=== PATIENT | male | born 1965 | race Caucasian/White ===

== ENCOUNTER → 2024-01-02 | Outpatient (CLI) | payer BC, SELFPAY ==
[2024-01-02 15:17] LABS: Absolute Lymphocyte Count 1.07 X10^3/uL (0.83-4.51); Absolute Neutrophil Count 3.7 X10^3/uL (2.0-7.7); Basophil# 0.07 X10^3/uL; Basophil% 1.2 % (0-1); Eosinophil# 0.13 X10^3/uL; Eosinophils% 2.3 % (0-5); Hematocrit 41.9 % (40-54); Hemoglobin 14.5 g/dL (13.0-16.5); Lymphocyte # 1.07 X10^3/ul (0.83-4.51); Mean Corp Hgb Conc 34.6 g/dL (32-36); Mean Corpuscular Hgb 34.6 pg (27.0-32.0); Mean Platelet Vol. 10.1 fl (6.2-12.0); Monocyte# 0.63 X10^3/uL; Monocyte% 11.2 % (0-10); NRBC Flagged by Analyzer 0 % (0-5); Neutrophil % 65.8 % (47-70); Platelet Count 293 K/mm3 (150-450); RBC Distribution Width SD 44.3 fl (35.1-43.9); Red Blood Count 4.19 M/mm3 (4.6-6.2); White Blood Count 5.6 K/mm3 (4.4-11.0)
[2024-01-02 16:10] LABS: AST(SGOT) 26 U/L (15-37); Alanine Aminotransfer ALT/SGPT 36 U/L (16-61); Albumin, Serum 3.7 g/dL (3.2-5.0); Alkaline Phosphatase 60 U/L (45-117); Globulin 3.4 g/dL (2.2-4.2); Protein, Total 7.1 g/dL (6.4-8.2)
[2024-01-04 12:09] LABS: QNTFERON TB Mitogen Value > 10.00 IU/mL (.); QNTFERON TB Nil Value 0 IU/mL (.); QNTFERON TB1+ Ag Value 0 IU/mL (.); QNTFERON TB2+ Ag Value 0 IU/mL (.); QNTIFERON TB Positive Criteria Negative (Negative)
== END | disposition home or self-care (01) ==
PROVIDERS: Referring Provider Dermatology; Visit Provider Dermatology
DX: L40.0 Psoriasis vulgaris (principal); Z79.899 Other long term (current) drug therapy
CPT/HCPCS: 36415; 80076; 85025; 86480

== ENCOUNTER → 2024-01-04 | Outpatient (CLI) | payer BC, SELFPAY ==
[2024-01-04 13:33] LABS: T4 Free Direct 1.03 ng/dL (0.76-1.46); T4 Total, Thyroxin 9.5 ug/dL (4.5-12.1)
== END | disposition home or self-care (01) ==
LOC: BIMLAB 09:44
PROVIDERS: PCP Internal Medicine; Referring Provider Physician Assistant; Visit Provider Physician Assistant
DX: E06.3 Autoimmune thyroiditis (principal)
CPT/HCPCS: 36415; 84436; 84439; 84443

== ENCOUNTER → 2025-02-28 | Outpatient (CLI) | payer BC, SELFPAY ==
[2025-02-28 19:20] LABS: Cholesterol 291 mg/dL (<=200); Low Density Lipoprotein Calc. 152 mg/dL; Triglycerides 348 mg/dL; Very Low Density Lipoprotein 70 mg/dL (5-40); cholesterol:hdl ratio screen 3.89
== END | disposition home or self-care (01) ==
LOC: MTLAB 15:39
PROVIDERS: PCP Internal Medicine; Referring Provider Internal Medicine; Visit Provider Internal Medicine
DX: Z13.6 Encounter for screening for cardiovascular disorders (principal); E03.9 Hypothyroidism, unspecified
CPT/HCPCS: 36415; 80061; 84443

== ENCOUNTER → 2025-03-04 | Outpatient (CLI) | payer BC, SELFPAY ==
[2025-03-04 17:42] LABS: Hematocrit 40.4 % (40-54); Hemoglobin 14.2 g/dL (13.0-16.5); Immature Granulocytes Count 0.010 X10^3/uL (0.0-0.0); Mean Corp Hgb Conc 35.1 g/dL (32-36); Mean Corpuscular Volume 101.5 fL (80-94); Mean Platelet Vol. 9.7 fl (6.2-12.0); NRBC Flagged by Analyzer 0 % (0-5); Platelet Count 267 K/mm3 (150-450); RBC Distribution Width CV 12.9 % (11.6-14.6); RBC Distribution Width SD 48.6 fl (35.1-43.9); Red Blood Count 3.98 M/mm3 (4.6-6.2); White Blood Count 4.4 K/mm3 (4.4-11.0)
[2025-03-04 18:37] LABS: AST(SGOT) 44 U/L (<=37); Alanine Aminotransfer ALT/SGPT 35 U/L (<=46); Albumin, Serum 4.2 g/dL (3.4-4.8); Alkaline Phosphatase 73 U/L (40-129); Anion Gap 10 (5-15); BUN 14 mg/dL (4-19); BUN/Creat Ratio 14.6 RATIO (10-20); Calcium,Total 8.9 mg/dL (7.6-11.0); Carbon Dioxide 24.0 mmol/L (21.0-32.0); Chloride 106 mmol/L (98-108); Globulin 2.6 g/dL (2.2-4.2); Glucose 107 mg/dL (70-99); Potassium 3.9 mmol/L (3.3-5.1); T3 Total - Triiodothyronine 0.86 ng/mL (0.80-2.00); Vitamin B12 633 pg/mL (180-914); Vitamin D,25 Hydroxy 18.2 ng/mL (30-100)
[2025-03-04 18:58] LABS: FOLATES,SERUM (FOLIC ACID) 21.10 ng/mL (4.60-34.80)
== END | disposition home or self-care (01) ==
LOC: MTLAB 14:57
PROVIDERS: PCP Internal Medicine; Referring Provider Internal Medicine; Visit Provider Internal Medicine
DX: F10.10 Alcohol abuse, uncomplicated (principal); R53.83 Other fatigue; E03.9 Hypothyroidism, unspecified
CPT/HCPCS: 36415; 80053; 82306; 82607; 82746; 84425; 84439; 84480; 85025

== ENCOUNTER → 2025-03-18 | Outpatient (CLI) | payer BC, SELFPAY | END | disposition home or self-care (01) | PROVIDERS: PCP Internal Medicine; Referring Provider Internal Medicine; Visit Provider Internal Medicine | DX: R05.9 Cough, unspecified (principal); J18.9 Pneumonia, unspecified organism | CPT/HCPCS: 87631; 87633 ==

== ENCOUNTER 2025-04-09 07:35 | Day surgery (SDC) | payer BC, SELFPAY ==
[2025-04-09] VITALS (8 sets, daily range): BP systolic 125–149; BP diastolic 73–89; PULSE 68–74; RESP 14–16; TEMP 36.3–36.6; O2SAT 98–99; BMI 28.1
--- OUTSIDE RECORDS SUMMARY | 2025-04-09 07:39 | XMS RPT_ITS | CCD ---
Author Organization [facility] Care Team Providers Care Almond Sorter Name Role Phone Susan, Fern Primary Care Unavailable Pembine, Fern Referring Unavailable Susan, Fern Attending Unavailable Pembine, Fern Referring Unavailable Susan, Fern Attending Unavailable Pembine, Fern Primary Care Unavailable Pembine, Fern Primary Care Unavailable Pembine, Fern Referring Unavailable Pembine, Fern Attending Unavailable Susan, Fern Referring Unavailable Pembine, Fern Attending Unavailable Susan, Fern Primary Care Unavailable Susan, Fern Primary Care Unavailable Pembine, Fern Referring Unavailable Pembine, Fern Attending Unavailable Pembine, Fern Primary Care Unavailable Myles Waterman Attending Unavailable Problems Problem Classification Problem Date Documented Date Episodic/Chronic Alcohol-related disorders (1 source) Alcohol abuse, uncomplicated; Translations: [Alcohol abuse, uncomplicated] Onset: 03-11-2025 Chronic Other screening for suspected conditions (not mental disorders or infectious disease) (1 source) Encounter for screening for cardiovascular disorders; Translations: [Encounter for screening for cardiovascular disorders] Onset: 03-09-2025 Episodic Pneumonia (except that caused by tuberculosis or sexually transmitted disease) (2 sources) Pneumonia, unspecified organism; Translations: [Pneumonia, unspecified organism] Onset: 03-18-2025 Episodic Residual codes; unclassified (1 source) Personal history of other medical treatment; Translations: [Personal history of other medical treatment] Onset: 03-04-2025 Episodic Results Test Name Value Interpretation Reference Range Facility Internal Medicine Office Vis annemarie 03-14-2025 Internal Medicine Office Visit [facility] Internal [facility] [place], [place] [address] OFFICE VISIT Date of Service: 03/18/25 MR#: [id number] Acct: [id number] Name: RAHAT VELARDE Rep #: [id number] : 1965 Provider: Dr. Fern villagomez MD Age/Sex: 59/M Location: [facility] Status: Signed Intake Vital Signs 03/04/25 13:32 03/18/25 09:08 Height 5 ft 8 in 5 ft 8 in Weight: 183 lb BMI 27.8 BP 142/77 H Blood Pressure Location Lt brachial Position Sitting Respiration 18 Pulse 81 Pulse Source Monitor Temp 99.2 F H Temp Source Temporal Pulse Oximetry (%) 98 Oxygen Delivery Method room air Intake Visit Reasons: POSSIBLE PNEUMONIA Chief Complaint: POSSIBLE PNEUMONIA Is patient in pain?: Yes (5 all over ) Allergies No Known Allergies Allergy (Unverified 03/18/25 09:11) Medications ???Medication ???Instructions ???Recorded ???Confirmed ???Type risankizumab-rzaa 150 mg/mL 150 mg subcut Q12W 01/04/24 History subcutaneous pen injector (Skyrizi) levothyroxine 150 mcg tablet 150 mcg PO QDAY #90 tabs 03/04/25 03/18/25 Rx (Euthyrox) vitamin d 2000 PO DAILY 03/18/25 History Nurse's Note: pt reports that ever since starting his levothyroxine he has been achy,feverish and chilling pt reports he is coughing up yellow/green thick sputum pt states he noticed red tinged coloring in his sputum PFSH Medical History Vitamin D deficiency Hypoglycemia Alcohol abuse J Luis thyroiditis Psoriasis Surgical History No pertinent past surgical history Family History Mother Autoimmune disorder Thyroid disorder CVA (cerebral vascular accident) Social History adopted: No household members: none number of children: 3 current occupational status: employed 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 He has concerns about possible pneumonia. He reports that after he was seen a couple of weeks ago, he started feeling ill. He reports he feels it is related to starting the levothyroxine. He reports he is coughing up thick yellow/green/red mucous. He does report it is a little better than it was. He denies any known sick contacts, however, works at [employer] so it around a lot of people. He reports he went to a [facility] walk in clinic 3-4 days ago, but states he left after he was triaged stating he didn't want to wait. He reports at that time, he was told he had a fever. He reports he has been having sweating and chills and feels his body temperature if 'off.' Symptoms include: Fever (=100.4F) or Chills: Yes Cough: Yes Shortness of breath or difficulty breathing: Yes, improving Fatigue: Yes Muscle aches: Yes Headache: Yes New loss of smell or taste: No Sore throat: Yes, resolved Nasal congestion: Yes Rhinorrhea: Yes Nausea: Yes? Vomiting: No Diarrhea: No OTC meds/remedies that the patient has tried: None High risk category assessment: Age Exposures: Sick contacts: None Family or close contacts with confirmed/suspected COVID in the last 14 days: No ROS Const Constitutional: Positive for chills, fever(s), headache(s), weakness and weight change (8 pound weight loss); No body ache, excessive sweating, fatigue, frequent falls, snoring, sleep problems, abnormal sleep pattern or change in appetite Eyes Eyes: No blurry vision, change in vision, eye pain or Light sensitivity ENT ENT: Positive for ear or mastoid pain, sinus pressure, headache(s) and dry mouth; No abnormal hearing, ear discharge, tinnitus, nasal congestion, sinus pain, neck pain or sore throat (resolved) Resp Respiratory: Positive for cough and shortness of breath (improved); No snoring or wheezing Cardio Cardiology: Positive for chest pain at rest Symptoms: Tightness (improving) and lightheadedness; No chest pain with exertion, excessive sweating, shortness of breath, dyspnea on exertion, orthopnea or palpitations Gastro GI: Positive for nausea/dyspepsia; No abdominal pain, change in bowel habits, constipation, cramping, diarrhea or vomiting Genitourinary Male: No burning urination, painful urinat (more content not included)... Normal [facility] [id number] 03-13-2025 ECG01 Ventricular Rate : 1 06 BPM Atrial Rate : 106 BPM P-R Interval : 152 ms QRS Duration : 82 ms Q-T Interval : 326 ms QTC Calculation(Bazett) : 433 ms Calculated P [place] : 61 degrees Calculated R [place] : 38 degrees Calculated T [place] : 18 degrees SINUS TACHYCARDIA CANNOT EXCLUDE INFERIOR MYOCARDIAL INFARCTION , AGE UNDETERMINED ABNORMAL ECG Confirmed by MICKIE LANGFORD MD ([id number]), clinical editor DEREK GRAVES ([id number]) on 03/16/2025 6:23:50 PM NAME : RAHAT VELARDE PID : [id number] : 1965 Gender : Male Race : Unknown ORD : Procedure Date : Mar 13 2025 22:50:21 Edit Date : Mar 16 2025 18:23:52 Diagnosis: SINUS TACHYCARDIA CANNOT EXCLUDE INFERIOR MYOCARDIAL INFARCTION , AGE UNDETERMINED ABNORMAL ECG Confirmed by MICKIE LANGFORD MD ([id number]), clinical editor DEREK GRAVES ([id number]) on 03/16/2025 6:23:50 PM Test Reason : Location : 2 : [facility]NS Overread By : MICKIE LANGFORD MD Edited By : DEREK GRAVES Referred By : , Acquired by : ANL, Normal [facility] Vitamin B1, Thiamineon 03-13 VIT B1 THIAMINE 111.8 nmol/L Normal 66.5-200.0 [facility] Comment on above: Order Comment: Test( s) 901118-Xvl. B1, Whole Bloodwas developed and its performance characteristicsdetermined by [facility]. It has not been cleared or approvedby the Food and Drug Administration. Result Comment: Perf ormed at: - [facility] [id number] Livestock Rancher: Deyvi Quiroz MD, Phone: [phone] Performed By: #### L 501.9520, L500.4100 #### [facility] [address] [place], [address] CBC W/Diff, Automatedon 10-2 Absolute Lymph 1.03 X10 3/uL Normal 0.83-4.51 [facility] Comment on above: Performed By: #### L 503.0106, L100.0100, L501.9187, L500.4050, L3300.8000, L506.1001, L506.0400, L506.0200 #### [facility] [address], [address] Absolute Neut 2.7 X10 3/uL Normal 2.0-7.7 [facility] Comment on above: Performed By: #### L 503.0106, L100.0100, L501.9187, L500.4050, L3300.8000, L506.1001, L506.0400, L506.0200 #### [facility] [address] [place], [address] Basophils/100 WBC (Bld) 1.4 % High 0-1 [facility] Comment on above: Performed By: #### L 503.0106, L100.0100, L501.9187, L500.4050, L3300.8000, L506.1001, L506.0400, L506.0200 #### [facility] [address] [place], [address] Eosinophils/100 WBC (Bld) 3.4 % Normal 0-5 [facility] Comment on above: Performed By: #### L 503.0106, L100.0100, L501.9187, L500.4050, L3300.8000, L506.1001, L506.0400, L506.0200 #### [facility] [address] [place], [address] Erythrocyte distribution width (RBC) [Ratio] 12.9 % Normal 11.6-14.6 [facility] Comment on above: Performed By: #### L 503.0106, L100.0100, L501.9187, L500.4050, L3300.8000, L506.1001, L506.0400, L506.0200 #### [facility] [address] [place], [address] Hematocrit (Bld) [Volume fraction] 40.4 % Normal 40-54 [facility] Comment on above: Performed By: #### L 503.0106, L100.0100, L501.9187, L500.4050, L3300.8000, L506.1001, L506.0400, L506.0200 #### [facility] [address] [place], [address] Hemoglobin (Bld) [Mass/Vol] 14.2 g/dL Normal 13.0-16.5 [facility] Comment on above: Performed By: #### L 503.0106, L100.0100, L501.9187, L500.4050, L3300.8000, L506.1001, L506.0400, L506.0200 #### [facility] [address] [place], [address] IG% 0.200 Normal 0.0-0.9 [facility] Comment on above: Result Comment: IG% - Immature Granulocytes (promyelocytes, myelocytes and metamyelocytes) > 1% indicates that a LEFT SHIFT is Present. Performed By: #### L 503.0106, L100.0100, L501.9187, L500.4050, L3300.8000, L506.1001, L506.0400, L506.0200 #### [facility] [address] [place], [address] Lymphocytes/100 WBC (Bld) 23.2 % Normal 19-41 [facility] Comment on above: Performed By: #### L 503.0106, L100.0100, L501.9187, L500.4050, L3300.8000, L506.1001, L506.0400, L506.0200 #### [facility] [address] [place], [address] MCH (RBC) [Entitic mass] 35.7 pg High 27.0-32.0 [facility] Comment on above: Performed By: #### L 503.0106, L100.0100, L501.9187, L500.4050, L3300.8000, L506.1001, L506.0400, L506.0200 #### [facility] [address] [place], [address] MCHC (RBC) [Mass/Vol] 35.1 g/dL Normal 32-36 [facility] Comment on above: Performed By: #### L 503.0106, L100.0100, L501.9187, L500.4050, L3300.8000, L506.1001, L506.0400, L506.0200 #### [facility] [address] [place], [address] MCV (RBC) [Entitic vol] 101.5 fL High 80-94 [facility] Comment on above: Performed By: #### L 503.0106, L100.0100, L501.9187, L500.4050, L3300.8000, L506.1001, L506.0400, L506.0200 #### [facility] [address] [place], [address] Monocytes/100 WBC (Bld) 10.4 % High 0-10 [facility] Comment on above: Performed By: #### L 503.0106, L100.0100, L501.9187, L500.4050, L3300.8000, L506.1001, L506.0400, L506.0200 #### [facility] [address] [place], [address] Neutrophils/100 WBC (Bld) 61.4 % Normal 47-70 [facility] Comment on above: Performed By: #### L 503.0106, L100.0100, L501.9187, L500.4050, L3300.8000, L506.1001, L506.0400, L506.0200 #### [facility] [address] [place], [address] Nucleated RBC (Bld) [#/Vol] 0 10*3/uL Normal 0-5 [facility] Comment on above: Performed By: #### L 503.0106, L100.0100, L501.9187, L500.4050, L3300.8000, L506.1001, L506.0400, L506.0200 #### [facility] [address] [place], [address] Platelet mean volume (Bld) [Entitic vol] 9.7 fL Normal 6.2-12.0 [facility] Comment on above: Performed By: #### L 503.0106, L100.0100, L501.9187, L500.4050, L3300.8000, L506.1001, L506.0400, L506.0200 #### [facility] [address] [place], [address] Platelets (Bld) [#/Vol] 267 10*3/uL Normal 150-450 [facility] Comment on above: Performed By: #### L 503.0106, L100.0100, L501.9187, L500.4050, L3300.8000, L506.1001, L506.0400, L506.0200 #### [facility] [address] [place], [address] RBC (Bld) [#/Vol] 3.98 10*6/uL Low 4.6-6.2 [facility] Comment on above: Performed By: #### L 503.0106, L100.0100, L501.9187, L500.4050, L3300.8000, L506.1001, L506.0400, L506.0200 #### [facility] [address] [place], [address] RDW SD 48.6 fl High 35.1-43.9 [facility] Comment on above: Performed By: #### L 503.0106, L100.0100, L501.9187, L500.4050, L3300.8000, L506.1001, L506.0400, L506.0200 #### [facility] [address] [place], [address] WBC (Bld) [#/Vol] 4.4 10*3/uL Normal 4.4-11.0 [facility] Comment on above: Performed By: #### L 503.0106, L100.0100, L501.9187, L500.4050, L3300.8000, L506.1001, L506.0400, L506.0200 #### [facility] [address] [place], [address] Comprehensive [facility] 03-04-2025 Albumin [Mass/Vol] 4.2 g/dL Normal 3.4-4.8 [facility] Comment on above: Performed By: #### L 503.0106, L100.0100, L501.9187, L500.4050, L3300.8000, L506.1001, L506.0400, L506.0200 #### [facility] [address] [place], [address] Albumin/Globulin [Mass ratio] 1.6 {ratio} Normal 0.9-2.4 [facility] Comment on above: Performed By: #### L 503.0106, L100.0100, L501.9187, L500.4050, L3300.8000, L506.1001, L506.0400, L506.0200 #### [facility] [address] [place], [address] ALK PHOS 73 U/L Normal 40-129 [facility] Comment on above: Performed By: #### L 503.0106, L100.0100, L501.9187, L500.4050, L3300.8000, L506.1001, L506.0400, L506.0200 #### [facility] [address] [place], [place], [id number] (864) ALT [Catalytic activity/Vol] 35 U/L Normal <=46 [facility] Comment on above: Performed By: #### L 503.0106, L100.0100, L501.9187, L500.4050, L3300.8000, L506.1001, L506.0400, L506.0200 #### [facility] [address] [place], [place], [id number] AST [Catalytic activity/Vol] 44 U/L High <=37 [facility] Comment on above: Performed By: #### L 503.0106, L100.0100, L501.9187, L500.4050, L3300.8000, L506.1001, L506.0400, L506.0200 #### [facility] [address] [place], [place], [address] Bilirubin [Mass/Vol] 0.53 mg/dL Normal 0.00-1.30 [facility] Comment on above: Performed By: #### L 503.0106, L100.0100, L501.9187, L500.4050, L3300.8000, L506.1001, L506.0400, L506.0200 #### [facility] [address] [place], [address] BUN/CRE 14.6 RATIO Normal 10-20 [facility] Comment on above: Performed By: #### L 503.0106, L100.0100, L501.9187, L500.4050, L3300.8000, L506.1001, L506.0400, L506.0200 #### [facility] [address] [place], [address] Calcium [Mass/Vol] 8.9 mg/dL Normal 7.6-11.0 [facility] Comment on above: Performed By: #### L 503.0106, L100.0100, L501.9187, L500.4050, L3300.8000, L506.1001, L506.0400, L506.0200 #### [facility] [address] [place], [address] Chloride [Moles/Vol] 106 mmol/L Normal 98-108 [facility] Comment on above: Performed By: #### L 503.0106, L100.0100, L501.9187, L500.4050, L3300.8000, L506.1001, L506.0400, L506.0200 #### [facility] [address] [place], [address] CO2 [Moles/Vol] 24.0 mmol/L Normal 21.0-32.0 [facility] Comment on above: Performed By: #### L 503.0106, L100.0100, L501.9187, L500.4050, L3300.8000, L506.1001, L506.0400, L506.0200 #### [facility] [address] [place], [address] Creatinine [Mass/Vol] 0.94 mg/dL Normal 0.70-1.20 [facility] Comment on above: Performed By: #### L 503.0106, L100.0100, L501.9187, L500.4050, L3300.8000, L506.1001, L506.0400, L506.0200 #### [facility] [address] [place], [place], [id number] (561) GAP 10 Normal 5-15 [facility] Comment on above: Performed By: #### L 503.0106, L100.0100, L501.9187, L500.4050, L3300.8000, L506.1001, L506.0400, L506.0200 #### [facility] [address] [place], [address] GFR/1.73 sq M.predicted among non-blacks MDRD (S/P/Bld) [Vol rate/Area] 93 mL/min/{1.73_m2} Normal >60 [facility] Comment on above: Result Comment: mL/m in/1.73m2 CKD-EPI Creatinine Equation (2020) Performed By: #### L 503.0106, L100.0100, L501.9187, L500.4050, L3300.8000, L506.1001, L506.0400, L506.0200 #### [facility] [address] [place], [place], [id number] (121) Globulin (S) [Mass/Vol] 2.6 g/dL Normal 2.2-4.2 [facility] Comment on above: Performed By: #### L 503.0106, L100.0100, L501.9187, L500.4050, L3300.8000, L506.1001, L506.0400, L506.0200 #### [facility] [address] [place], [place], [phone] Glucose [Mass/Vol] 107 mg/dL High 70-99 [facility] Comment on above: Performed By: #### L 503.0106, L100.0100, L501.9187, L500.4050, L3300.8000, L506.1001, L506.0400, L506.0200 #### [facility] [address] [place], [address] Potassium [Moles/Vol] 3.9 mmol/L Normal 3.3-5.1 [facility] Comment on above: Performed By: #### L 503.0106, L100.0100, L501.9187, L500.4050, L3300.8000, L506.1001, L506.0400, L506.0200 #### [facility] [address] [place], [address] Sodium [Moles/Vol] 140 mmol/L Normal 133-145 [facility] Comment on above: Performed By: #### L 503.0106, L100.0100, L501.9187, L500.4050, L3300.8000, L506.1001, L506.0400, L506.0200 #### [facility] [address] [place], [address] T PROT 6.8 g/dL Normal 5.9-8.4 [facility] Comment on above: Performed By: #### L 503.0106, L100.0100, L501.9187, L500.4050, L3300.8000, L506.1001, L506.0400, L506.0200 #### [facility] [address] [place], [address] Urea nitrogen [Mass/Vol] 14 mg/dL Normal 4-19 [facility] Comment on above: Performed By: #### L 503.0106, L100.0100, L501.9187, L500.4050, L3300.8000, L506.1001, L506.0400, L506.0200 #### [facility] [address] [place], [address] Folates,Serum (Folic Acid)on 03-04-2025 FOLATES,SERUM 21.10 ng/mL Normal 4.60-34.80 [facility] Comment on above: Order Comment: N Result Comment: Hemo lysis, Results will be affected, Requires Recollection. Performed By: #### L 501.9520, L500.4100 #### [facility] [address] [place], [address] Internal Medicine Office Vis iton 03-04-2025 Internal Medicine Office Visit [facility] Internal Medicine [address] [place] [address] [place] [address] OFFICE VISIT Date of Service: 03/04/25 MR#: [id number] Acct: [id number] Name: RAHAT VELARDE Rep #: [id number] : 1965 Provider: Dr. 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 Required: No Accompanied by: Self Is patient in pain?: No Allergies No Known Allergies Allergy (Unverified 03/04/25 13:19) Medications ???Medication ???Instructions ???Recorded ???Confirmed ???Type risankizumab-rzaa 150 mg/mL 150 mg subcut Q12W 01/04/24 History subcutaneous pen injector (Skyrizi) levothyroxine 150 mcg tablet 150 mcg PO QDAY #90 tabs 03/04/25 03/04/25 Rx (Euthyrox) Nurse's Note: patient has not taken synthroid in the past year SOB fatigue chest tightness head feels cloudy and diarrhea and ankle inflammation eye lids and below eyes swollen PFSH Medical History Vitamin D deficiency Hypoglycemia Alcohol abuse J Luis thyroiditis Psoriasis Surgical History No pertinent past surgical history Family History Mother Autoimmune disorder Thyroid disorder CVA (cerebral vascular accident) Social History (Updated 03/04/25 @ 13:[address] 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 1. Little interest or pleasure in doing things: several days 2. Feeling down, depressed, or hopeless: not at all 3. Trouble falling or staying asleep, or sleeping too much: several days 4. Feeling tired or having little energy: nearly every day 5. Poor appetite or overeating: nearly every day 6. Feeling bad about yourself - or that you are a failure or have let yourself and your family down: not at all 7. Trouble concentrating on things, such as reading the newspaper or watching television: more than half the days 8. Moving or speaking so slowly that other people could have noticed? - Or the opposite - being so fidgety or restless that you have been moving around a lot more than usual: more than half the days 9. Thoughts that you would be better off or of hurting yourself in some way: not at all Total score: 12 If you checked off any problems, how difficult have these problems made it for you to do your work, take care of things at home, or get along with other people?: somewhat difficult Source: Developed by Drs. Hal Pozo, Vanda Rodriguez, Bassam Blake and colleagues, with an educational cj from [employer]. NHUNG-7 BMS NHUNG-7 Feeling nervous, anxious, or on edge: 0 = Not at all Not being able to stop or control worryin = Not at all Worrying too much about different things: 0 = Not at all Trouble relaxin = Not at all Being so restless that it is hard to sit still: 0 = Not at all Becoming easily annoyed or irritable: 0 = Not at all Feeling afraid as if something awful might happen: 0 = Not at all Total NHUNG-7 score (0-4 normal; 5-9 mild; 10-14 moderate; 15-21 severe): 0 Source: Developed by Drs. Hal Pozo, Vanda Rodriguez, Bassam Blake and colleagues, with an educational cj from [employer]. HPI HPI Chief Complaint: yearly Details: RAHAT VELARDE, is a 59 M who presents to the office today for a follow up. He is due for some routine blood work and screening. He previously declined any immunizations and doesn't want a flu shot. He doesn't smoke and does need refills. He reports he doesn't really eat healthy. He reports he isn't very active stating he has no energy. The patient has been on thyroid medications for nearly 5 years, however, has been very inconsistent with taking the medication. He reports that he hasn't taken anything for his thyroid for 8-9 (more content not included)... Normal [facility] L501.9187on 03-04-2025 T3 Total 0.86 ng/mL Normal 0.80-2.00 [facility] Comment on above: Performed By: #### L 503.0106, L100.0100, L501.9187, L500.4050, L3300.8000, L506.1001, L506.0400, L506.0200 #### [facility] [address] [place], [place], [address] T4 Free Directon 03-04-2025 T4 FREE DIRECT 0.40 ng/dL Low 0.76-1.46 [facility] Comment on above: Performed By: #### L 503.0106, L100.0100, L501.9187, L500.4050, L3300.8000, L506.1001, L506.0400, L506.0200 #### [facility] [address] [place], [address] Vitamin B12on 03-04-2025 Cobalamin (Vitamin B12) [Mass/Vol] 633 pg/mL Normal 180-914 [facility] Comment on above: Performed By: #### L 503.0106, L100.0100, L501.9187, L500.4050, L3300.8000, L506.1001, L506.0400, L506.0200 #### [facility] [address] [place], [address] Vitamin D,25 Hydroxyon 03-04 Vitamin D 25-OH 18.2 ng/mL Low 30-100 [facility] Comment on above: Result Comment: Emily min D Status Deficiency: <20 ng/mL (50nmol/L) Insufficiency: 20-30 ng/mL (50-75 nmol/L) Sufficiency: 30-100 ng/mL (75-250 nmol/L) Toxicity: >100 ng/mL (>250 nmol/L) Performed By: #### L 503.0106, L100.0100, L501.9187, L500.4050, L3300.8000, L506.1001, L506.0400, L506.0200 #### [facility] [address] [place], [address] Lipid Profileon 02-28-2025 CHOL:HDL 3.89 Normal [facility] Comment on above: Performed By: #### L 501.9520, L500.4100 #### [facility] [address] [place], [address] Cholesterol [Mass/Vol] 291 mg/dL High <=200 [facility] Comment on above: Result Comment: Chol esterol level, Desirable <200 mg/dL Borderline high cholesterol 200-239 mg/dL High cholesterol >=240 mg/dL Recommendations of the NCEP Adult Treatment Panel for the following risk-cutoff thresholds for the [place] population. Performed By: #### L 501.9520, L500.4100 #### [facility] [address] [place], [address] Cholesterol in HDL [Mass/Vol] 75 mg/dL Normal [facility] Comment on above: Result Comment: Jazmin onal Cholesterol Education Program (NCEP) guidelines: <40 mg/dL: Low HDL-cholesterol (major risk factor for CHD) >= 60 mg/dL: High HDL-cholesterol (negative risk factor for CHD) HDL-cholesterol is affected by a number of factors, e.g. smoking, exercise, hormones, sex and age. Performed By: #### L 501.9520, L500.4100 #### [facility] [address] [place], [address] Cholesterol in LDL [Mass/Vol] 152 mg/dL Normal [facility] Comment on above: Result Comment: Bord byzwcp=807-627 mg/dL Higher Rolp=615 mg/dL or greater Peoples Equation 2020 for LDL-C Performed By: #### L 501.9520, L500.4100 #### [facility] [address] [place], [address] Cholesterol in VLDL [Mass/Vol] 70 mg/dL High 5-40 [facility] Comment on above: Performed By: #### L 501.9520, L500.4100 #### [facility] [address] [place], [address] Triglyceride [Mass/Vol] 348 mg/dL High [facility] Comment on above: Result Comment: The drugs N-Acetylcysteine and Metamizole may falsely depress this assay. Normal range: <150 mg/dL Borderline High: 150-199 mg/dL High: 200-499 mg/dL Very High: >500 mg/dL Performed By: #### L 501.9520, L500.4100 #### [facility] [address] [place], [address] Thyroid Stim Hormone (TSH)on 02-28-2025 TSH 82.100 uIU/mL High 0.300-4.200 [facility] Comment on above: Performed By: #### L 501.9520, L500.4100 #### [facility] [place], [address] Encounters Encounter Date Encounter Type Care Provider Facility Start: 04-09-2025 ambulatory Fern Pembine Facility :[facility] Start: 03-18-2025 ambulatory Fern Pembine Facility :[facility] Start: 03-18-2025 End: 03-18-2025 ambulatory Fern [place] [place] Start: 03-13-2025 End: 03-13-2025 Emergency department patient visit Facility:[facility] Start: 03-04-2025 End: 03-04-2025 ambulatory Fern Susan [place] Start: 03-04-2025 End: 03-04-2025 ambulatory Fern Susan Facility:[facility] Start: 02-28-2025 End: 02-28-2025 ambulatory Fern Pembine Facility:[facility] Payers Date Payer Category Payer Self-pay 2025 Unknown [id number] Unknown [id number] .. [id number] Unknown [id number] . [id number] Unknown [id number] .. [id number] Unknown [id number] .. [id number] Unknown [id number] ..8 [id number] Unknown [id number] [id number] [id number] Summary Purpose Family History No Family History Records FoundNo Family History Records Found Advance Directives No Advanced Directives Records FoundNo Advanced Directives Records Found Additional Source Comments (unrecognized sect ion and content) No Status Records FoundNo Status Records Found INFORMATION SOURCE (unrecogn ized section and content) DATE CREATED AUTHOR 03/17/2025 [facility] DATE CREATED AUTHOR AUTHOR'S LISA HATFIELD 03/21/2025 [facility] FOR RECORDS PERTAINING TO PATIENTS WHO ARE OR HAVE BEEN ENROLLED IN A CHEMICAL DEPENDENCY/SUBSTANCEABUSE PROGRAM, SOME INFORMATION MAY BE OMITTED. This clinical summary was aggregated from multiple sources. Caution should be exercised in using it in the provision of clinical care. This summary normalizes information from multiple sources, and as a consequence, information in this document may materially change the coding, format and clinical context of patient data. In addition, data may be omitted in some cases. CLINICAL DECISIONS SHOULD BE BASED ON THE PRIMARY CLINICAL RECORDS. [employer] [facility]. provides no warranty or guarantee of the accuracy or completeness of information in this document.
[2025-04-09] MEDS: Lactated Ringers 1,000 ML 15 ML IV (08:08)
--- NOTE | 2025-04-09 08:39 | PCM.PRE.AN2 ---
ASA Classification* ASA Classification ASA Classification: 2 Assessment & Plan Anesthesia* Anesthesia Assessment Anesthesia Assessment: Discussed sedation and/or anesthesia options, risks, benefits, and alternatives with patient/parents/legal guardian/POA. Questions invited. The patient/parents/legal guardian/POA seems to understand and agrees to proceed with anesthesia plan. Reviewed the physical assessment, medical history, allergy history and patient home medications list prior to surgery/procedure/anesthetic and documented any changes. Performed airway and anesthesia risk assessments. Anesthesia Type Anesthesia Type: MAC History Source History Obtained from:: Patient and Chart Anesthesia Focused Assessment* Temperature: 97.9 F Pulse Rate: 74 Blood Pressure: 149/89 Respiratory Rate: 14 Pulse Ox: 98 Oxygen Delivery Method: Room Air Airway Assessment Mouth opens: 2 cm Mallampati Score: I Teeth Condition: Intact Neck Range of motion (ROM): Limited ROM (Slight Decrease) Labs Anesthesia Preop lab: CBC WBC, (4.4-11.0) 4.4 K/mm3 03/04/25, 15:01 RBC, (4.6-6.2) 3.98 M/mm3 L 03/04/25, 15:01 Hgb, (13.0-16.5) 14.2 g/dL 03/04/25, 15:01 Hct, (40-54) 40.4 % 03/04/25, 15:01 Plt Count, (150-450) 267 K/mm3 03/04/25, 15:01 CHEMISTRY Potassium, (3.3-5.1) 3.9 mmol/L 03/04/25, 15:01 Sodium, (133-145) 140 mmol/L 03/04/25, 15:01 BUN, (4-19) 14 mg/dL 03/04/25, 15:01 Creatinine, (0.70-1.20) 0.94 mg/dL 03/04/25, 15:01 Glucose, (70-99) 107 mg/dL H 03/04/25, 15:01 TSH, (0.300-4.200) 82.100 uIU/mL H 02/28/25, 15:42 COAG Pre-Assessment Diagnosis/Proposed Procedure Planned Operative Procedure(s): CSCOPE Anesthesia History 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 When Was Last Pacemaker Check QUESTION #4 FULL TEXT: You/Your Family Experience fever (hyperthermia) with Anesthesia Last Oral Intake Last Oral intake: Last Oral Intake NPO since 21:00 04/09/25 07:57 Meds taken in AM with sips of No 04/09/25 07:57 water? Meds patient instructed to take am of surgery Any additional information?: Yes Meds taken in AM with sips of water?: Yes Meds patient instructed to take am of surgery: Levothyroxine PONV PONV - national sales consultant: PONV - national sales consultant Female No 04/03/25 11:06 HX of Motion Sickness No 04/03/25 11:06 HX of N/V After Surgery No 04/03/25 11:06 Non-Smoker Yes 04/03/25 11:06 Duration of Surgery greater No 04/03/25 11:06 than 60 minutes Number of Risk Factors 1 04/03/25 11:06 PONV Score Low Risk 04/03/25 11:06 Height & Weight Height & Weight: Anesthesia: Height & Weight Height 5 ft 8 in 04/09/25 07:57 Weight: 84 kg 04/09/25 07:57 Body Mass Index (BMI) 28.1 04/09/25 07:57 Respiratory Assessment Respiratory Assessment - national sales consultant: Respiratory Tract Infection Hx - national sales consultant Hx Respiratory Tract Infection Yes: URI 04/03/25 11:06 Any additional information?: Yes Hx Respiratory Tract Infection: Yes History of Anesthesia Respiratory Infection details: Patient had pneumonia within the past couple weeks. Treated with 1 week course of antibiotics. STOP Sleep Apnea STOP Sleep Apnea - national sales consultant: STOP Sleep Apnea - national sales consultant Hx Hypertension No 04/03/25 11:06 Hx Sleep Apnea No 04/03/25 11:06 CPAP BIPAP Do you snore loudly (louder No 04/03/25 11:06 than talking or can be heard Do you often feel tired/ No 04/03/25 11:06 fatigued/ sleepy during daytime? Has anyone observed you stop No 04/03/25 11:06 breathing during sleep? STOP Results Negative 04/03/25 11:06 QUESTION #5 FULL TEXT : Do you snore loudly (louder than talking or can be heard through closed doors)? 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 Specify any problems Hx of Preganancy in last 3 N/A 04/03/25 11:06 Months Nurse Filling Out Transfusion NBUCHER 04/03/25 11:06 & Questions: Date: 04/03/25 04/03/25 11:06 Time: 11:07 04/03/25 11:06 Patient unable to answer at this time (ie. confused, unrespo /Reproduction History /Reproductive History - national sales consultant: /Reproductive Hx- national sales consultant Hx Now No 04/03/25 11:06 Gestational Age (in weeks): EDC: Hx Hx Para Hx Section SAB No 04/03/25 11:06 Does the father of the baby or his family experience fever w Father of the baby Malignant Hypertension history comment Active Medications Active Medications: Current Medications Generic Name Dose Route Start Last Admin Trade Name Freq PRN Reason Stop Dose Admin Lactated Ringer's 1,000 mls @ 15 mls/hr 04/09/25 07:45 04/09/25 08:08 IV 15 mls/hr .Q48H RENÉE Administration PFSH Medical History Hyperthyroidism Thyroid disease Non-smoker Vitamin D deficiency Hypoglycemia Alcohol abuse J Luis thyroiditis Psoriasis Home Medications Medication Instructions Recorded Last Taken Type risankizumab-rzaa 150 mg/mL 150 mg subcut Q12W 01/04/24 Unknown History subcutaneous pen injector (Skyrizi) levothyroxine 150 mcg tablet 150 mcg PO QDAY #90 tabs 03/04/25 04/09/25 05:45 Rx (Euthyrox) cholecalciferol (vitamin D3) 50 50 mcg PO DAILY 04/03/25 Unknown History mcg (2,000 unit) capsule (Vitamin D3) Allergy/AdvReac Type Severity Reaction Status Date / Time No Known Allergies Allergy Verified 04/09/25 07:56 Family History Mother Autoimmune disorder Thyroid disorder CVA (cerebral vascular accident) Surgical History History of colonoscopy No pertinent past surgical history Social History adopted: No household members: none number of children: 3 current occupational status: employed 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
--- NOTE | 2025-04-09 08:45 | COLBX_PTH ---
PATIENT: RAHAT VELARDE LOC: EN U#:[id number] AGE/SX: 59/M ROOM: RE04/09/[address]: Dr. Myles Waterman MD : 1965 BED: DIS: 04/09/2025 SPEC #: [id number] RECD: 04/09/25 10:22 STATUS: BROOKLYNN REKarlie #: [id number] PRISCILLA: 04/09/25 08:[address]: Myles Waterman DEPT: SURGICAL PATHOLOGY RECD BY: Bowen Walsh ENTERED: 04/09/25 10:43 SP TYPE: COLON BX OTHR DR: Dr. Fren Davis MD Tissues: A - Sigmoid colon biopsy Procedures: Surgery Specimen Level IV HEADER OPERATION: Colonoscopy with biopsy PRE-OP DIAGNOSIS: Screening colonoscopy TISSUE SUBMITTED: A- Sigmoid polyp biopsy MICROSCOPIC DIAGNOSIS A. Colon, sigmoid, polyp, biopsy: - Hyperplastic polyp, small mucosal lymphoid aggregate. MICROSCOPIC DESCRIPTION Slides are reviewed. GROSS DESCRIPTION A. Received in fixative is one container labeled with the patient's name and designated "Sigmoid polyp biopsy." The specimen consists of one irregular fragment of campuzano tissue that measures 0.4 cm. The specimen is totally submitted in one cassette. MA 04/09/2025 CPT:70867
--- NOTE | 2025-04-09 09:16 | PCM.HP.STD ---
[facility] - General General Date of Admission: 04/09/25 Date of Service: 04/09/25 Chief Complaint: Colonoscopy HPI Narrative RAHAT VELARDE, is a 59 M who presents today for screening colonoscopy. His last colonoscopy was about 10 or 11 years ago. He does have a history of polyps. He denies any recent GI issues or problems [facility] Medical History (Updated 04/09/25 @ 09:[address] Myles Waterman MD) Screening for colon cancer Hyperthyroidism Thyroid disease Non-smoker Vitamin D deficiency Hypoglycemia Alcohol abuse J Luis thyroiditis Psoriasis Home Medications Medication Instructions Recorded Last Taken Type risankizumab-rzaa 150 mg/mL 150 mg subcut Q12W 01/04/24 Unknown History subcutaneous pen injector (Skyrizi) levothyroxine 150 mcg tablet 150 mcg PO QDAY #90 tabs 03/04/25 04/09/25 05:45 Rx (Euthyrox) cholecalciferol (vitamin D3) 50 50 mcg PO DAILY 04/03/25 Unknown History mcg (2,000 unit) capsule (Vitamin D3) Allergy/AdvReac Type Severity Reaction Status Date / Time No Known Allergies Allergy Verified 04/09/25 07:56 Family History Mother Autoimmune disorder Thyroid disorder CVA (cerebral vascular accident) Surgical History History of colonoscopy No pertinent past surgical history Social History adopted: No household members: none number of children: 3 current occupational status: employed 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 pets and animals: No sexually active: No Smoking Status: Never smoker alcohol intake: current alcohol intake frequency: a few times a week substance use type: does not use well-balanced diet: daily or most days caffeine: Yes (2) Type: coffee frequency: daily seatbelt use: always do you feel safe at home: Yes Vital Signs Vital Signs Vital Signs: 04/09/25 07:57 04/09/25 07:57 04/09/25 08:01 Temperature 97.9 F Temperature Source Temporal Pulse Rate 74 Respiratory Rate 14 Respiratory Pattern Normal Blood Pressure 149/89 H Blood Pressure Mean 109 Blood Pressure Source Monitor Blood Pressure Position Sitting Blood Pressure Location Left Arm Baseline BP 149/89 Pulse Ox 98 Oxygen Delivery Method Room Air 04/09/25 08:46 Temperature 97.9 F Temperature Source Pulse Rate 74 Respiratory Rate 14 Respiratory Pattern Blood Pressure 149/89 H Blood Pressure Mean Blood Pressure Source Blood Pressure Position Blood Pressure Location Baseline BP Pulse Ox 98 Oxygen Delivery Method Room Air Weight Weight: 185 lb 3.013 oz Body Mass Index (BMI) 28.1 Physical Exam Const alert, oriented x3 and no apparent distress Assessment & Plan Assessment/Plan (1) Screening for colon cancer: PLAN: Plan Patient is a 59-year-old male in need of a screening colonoscopy. We discussed the details of the planned procedure including risks benefits and alternatives. He wishes to proceed. This is to begin momentarily
--- NOTE | 2025-04-09 09:59 | OP.PROVAT_ITS ---
04/09/2025 Fern Davis Md Re : Colonoscopy procedure for Carrington Moreno Dear Susan This procedure was performed on Wednesday, April 09, 2025. My impressions and recommendations are as follows: Impressions : - Preparation of the colon was fair. - Internal hemorrhoids. - One 3 mm polyp in the sigmoid colon, removed with a cold biopsy forceps. Resected and retrieved. - The examination was otherwise normal on direct and retroflexion views. Recommendations : - Discharge patient to home (ambulatory). - High fiber diet. - Await pathology results. - Repeat colonoscopy in 5 years for surveillance. - Return to my office PRN. - Continue present medications. My findings are described in the full procedure note, which is enclosed. If I can be of further assistance, please feel free to contact me at . Sincerely, Myles Waterman MD 04/09/2025 9:58:53 AM This report has been signed electronically.
--- NOTE | 2025-04-09 09:59 | OP.COLON_ITS ---
Patient Name: Carrington Moreno Procedure Date: 04/09/2025 9:12 AM Date of : 1965 Age: 59 Procedure: Colonoscopy Indications: High risk colon cancer surveillance: Personal history of colonic polyps Providers: Myles Waterman MD Referring MD: Fern Davis Md Medicines: Monitored Anesthesia Care Patient Profile: Refer to note in patient chart for documentation of history and physical. Last Colonoscopy: more than 10 years ago. Complications: No immediate complications. Estimated blood loss: Minimal. Procedure: Pre-Anesthesia Assessment: - Prior to the procedure, a History and Physical was performed, and patient medications and allergies were reviewed. The patient's tolerance of previous anesthesia was also reviewed. The risks and benefits of the procedure and the sedation options and risks were discussed with the patient. All questions were answered, and informed consent was obtained. Prior Anticoagulants: The patient has taken no anticoagulant or antiplatelet agents. ASA Grade Assessment: II - A patient with mild systemic disease. After reviewing the risks and benefits, the patient was deemed in satisfactory condition to undergo the procedure. After I obtained informed consent, the scope was passed under direct vision. Throughout the procedure, the patient's blood pressure, pulse, and oxygen saturations were monitored continuously. The adult colonoscope was introduced through the anus and advanced to the cecum, identified by appendiceal orifice and ileocecal valve. The ileocecal valve, appendiceal orifice, and rectum were photographed. The entire colon was examined. The colonoscopy was performed without difficulty. The patient tolerated the procedure well. The quality of the bowel preparation was fair. Moderate Sedation: See the other procedure note for documentation of moderate sedation with intraservice time. Scope In: 9:28:42 AM Scope Withdrawal Time 0 hours 9 minutes 58 seconds Scope Out: 9:49:07 AM Total Procedure Duration Time 0 hours 20 minutes 25 seconds Findings: The perianal and digital rectal examinations were normal. Internal hemorrhoids were found during retroflexion. The hemorrhoids were moderate. A 3 mm polyp was found in the sigmoid colon. The polyp was semi-pedunculated. The polyp was removed with a cold biopsy forceps. Resection and retrieval were complete. Verification of patient identification for the specimen was done by the nurse using the patient's name, date and medical record number. Estimated blood loss was minimal. The exam was otherwise without abnormality on direct and retroflexion views. Impression: - Preparation of the colon was fair. - Internal hemorrhoids. - One 3 mm polyp in the sigmoid colon, removed with a cold biopsy forceps. Resected and retrieved. - The examination was otherwise normal on direct and retroflexion views. Recommendation: - Discharge patient to home (ambulatory). - High fiber diet. - Await pathology results. - Repeat colonoscopy in 5 years for surveillance. - Return to my office PRN. - Continue present medications. Procedure Code(s): --- Professional --- 76157, Colonoscopy, flexible; with biopsy, single or multiple Diagnosis Code(s): --- Professional --- D12.5, Benign neoplasm of sigmoid colon Z86.010, Personal history of colonic polyps K64.8, Other hemorrhoids CPT copyright 2021 [employer]. All rights reserved. The codes documented in this report are preliminary and upon math and science instructor review may be revised to meet current compliance requirements. Myles Waterman MD 04/09/2025 9:58:53 AM This report has been signed electronically. Number of Addenda: 0 Note Initiated On: 04/09/2025 9:12 AM
--- NOTE | 2025-04-09 10:00 | PCM.POST.ANE ---
Anesthesia: Postop Eval I Current Vital Signs Temperature: 97.4 F Pulse Rate: 68 Blood Pressure: 125/73 Respiratory Rate: 16 Pulse Ox: 99 Oxygen Delivery Method: Room Air Assessment Airway patent: Yes Spontaneous unlabored respirations: Yes Mental status: Awake and Calm nausea: No Vomiting: No Anesthesia Complication: No Fluid Hydration Crystalloid volume administer (ml): 600 Total IV fluid infused: 600 Progress Note Anesthesia document: Postop Eval 1 completed: Yes
--- NOTE | 2025-04-09 10:44 | PCM.POSTANE2 ---
Anesthesia Postop Eval I Sum Postop Eval Completion status Anesthesia document: Postop Eval 1 completed: Yes Anesthesia Postop Eval I Summary Anesthesia Postop Eval I Summary: Anesthesia Postop Eval I: Assessment Summary Airway patent Yes 04/09/25 10:01 [email or web address] Spontaneous unlabored Yes 04/09/25 10:01 [email or web address] respirations Mental status Awake,Calm 04/09/25 10:01 [email or web address] nausea No 04/09/25 10:01 [email or web address] Vomiting No 04/09/25 10:01 [email or web address] Anesthesia Postop Eval I: Fluid Summary Crystalloid volume administer 600 04/09/25 10:01 [email or web address] (ml) Colloids volume administered ( ml) Blood Product volume administered (ml) Total IV fluid infused 600 04/09/25 10:01 [email or web address] Anesthesia Postop Eval I: Summary Notes Anesthesia Complication No 04/09/25 10:01 [email or web address] Anesthesia Complication Comment: Post-operative progress note Anesthesia: Postop Eval II Evaluation Mental status: Awake and Calm Pain Level: 0 nausea: No Vomiting: No Complications Anesthesia Complication: No
== END 2025-04-09 10:43 | disposition home or self-care (01) ==
LOC: EN 07:36 → AC 07:38
PROVIDERS: PCP Internal Medicine; Referring Provider Internal Medicine; Visit Provider Surgery
PROC: 0DJD8ZZ Inspection of Lower Intestinal Tract, Via Natural or Artificial Opening Endoscopic (ICD-10-PCS; CPT 45378; principal; 2025-04-09 08:40)
DX: Z12.11 Encounter for screening for malignant neoplasm of colon (principal); K64.8 Other hemorrhoids; Z79.890 Hormone replacement therapy; Z86.0100 Personal history of colon polyps, unspecified; E05.90 Thyrotoxicosis, unspecified without thyrotoxic crisis or storm; K63.5 Polyp of colon
CPT/HCPCS: 45380; 88305; J2405

== ENCOUNTER → 2025-04-15 | Outpatient (CLI) | payer BC, SELFPAY ==
--- OUTSIDE RECORDS SUMMARY | 2025-04-15 13:23 | XMS RPT_ITS | CCD ---
Author Organization [facility] Care Team Providers Care [employer] Team Member Name Role Phone Susan, Fern Primary Care Unavailable Mequon, Fern Referring Unavailable Susan, Fern Attending Unavailable Mequon, Fern Referring Unavailable Susan, Fern Attending Unavailable Mequon, Fern Primary Care Unavailable Mequon, Fern Primary Care Unavailable Mequon, Fern Referring Unavailable Mequon, Fern Attending Unavailable Susan, Fern Referring Unavailable Mequon, Fern Attending Unavailable Susan, Fern Primary Care Unavailable Susan, Fern Primary Care Unavailable Mequon, Fern Referring Unavailable Mequon, Fern Attending Unavailable Mequon, Fern Primary Care Unavailable Myles Waterman Attending [...] Vis annemarie 03-14-2025 Internal Medicine Office Visit [facility] Internal Medicine [facility] [place], [place] [address] OFFICE VISIT Date of Service: 03/18/25 MR#: [id number] Acct: [id number] Name: RAHAT VELARDE Rep #: [id number] : 1965 Provider: Dr. 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 He reports he went to a [facility] walk in clinic 3-4 days ago, but [...] painful urinat (more content not included)... Normal [facility] [id number] 03-13-2025 ECG01 Ventricular Rate : 1 06 BPM Atrial Rate : 106 BPM P-R Interval : 152 ms QRS Duration : 82 ms Q-T Interval : 326 ms QTC Calculation(Bazett) : 433 ms Calculated P [place] : 61 degrees Calculated R [place] : 38 degrees Calculated T [place] : 18 degrees SINUS TACHYCARDIA CANNOT EXCLUDE INFERIOR MYOCARDIAL INFARCTION , AGE UNDETERMINED ABNORMAL ECG Confirmed by MICKIE LANGFORD MD ([id number]), field map editor DEREK GRAVES ([id number]) on 03/16/2025 6:23:50 PM NAME : RAHAT VELARDE PID : [id number] : 1965 Gender : Male Race : Unknown ORD : Procedure Date : Mar 13 2025 22:50:21 Edit Date : Mar 16 2025 18:23:52 Diagnosis: SINUS TACHYCARDIA CANNOT EXCLUDE INFERIOR MYOCARDIAL INFARCTION , AGE UNDETERMINED ABNORMAL ECG Confirmed by MICKIE LANGFORD MD ([id number]), field map editor DEREK GRAVES ([id number]) on 03/16/2025 6:23:50 PM Test Reason : Location : 2 : EDNS Overread By : MICKIE LANGFORD MD Edited By : DEREK GRAVES Referred By : , Acquired by : ANL, Normal [facility] Vitamin B1, Thiamineon 03-13 VIT B1 THIAMINE 111.8 nmol/L Normal 66.5-200.0 [facility] Comment on above: Order Comment: Test( s) 588347-Enb. B1, Whole Bloodwas developed and its performance characteristicsdetermined by [facility]. It has not been cleared or approvedby the Food and Drug Administration. Result Comment: Perf ormed at: - [facility] [id number] Manager Mining: Deyvi Quiroz MD, Phone: [phone] Performed By: #### L 501.9520, L500.4100 #### [facility] [address] [facility] [place], [address] CBC W/Diff, Automatedon 10-2 Absolute Lymph 1.03 X10 3/uL Normal 0.83-4.51 [facility] Comment on above: Performed By: #### L 503.0106, L100.0100, L501.9187, L500.4050, L3300.8000, L506.1001, L506.0400, L506.0200 #### [facility] [address] [place], [address] Absolute Neut 2.7 X10 3/uL Normal 2.0-7.7 [facility] Comment on above: Performed By: #### L 503.0106, L100.0100, L501.9187, L500.4050, L3300.8000, L506.1001, L506.0400, L506.0200 #### [facility] [address] [place], [address] Basophils/100 WBC (Bld) 1.4 % High 0-1 [facility] Comment on above: Performed By: #### L 503.0106, L100.0100, L501.9187, L500.4050, L3300.8000, L506.1001, L506.0400, L506.0200 #### [facility] [address] [place], [address] Eosinophils/100 WBC (Bld) 3.4 % Normal 0-5 [facility] Comment on above: Performed By: #### L 503.0106, L100.0100, L501.9187, L500.4050, L3300.8000, L506.1001, L506.0400, L506.0200 #### [facility] [address] [place], [address] Erythrocyte distribution width (RBC) [Ratio] 12.9 % Normal 11.6-14.6 [facility] Comment on above: Performed By: #### L 503.0106, L100.0100, L501.9187, L500.4050, L3300.8000, L506.1001, L506.0400, L506.0200 #### [facility] [address] [place], [address] Hematocrit (Bld) [Volume fraction] 40.4 % Normal 40-54 [facility] Comment on above: Performed By: #### L 503.0106, L100.0100, L501.9187, L500.4050, L3300.8000, L506.1001, L506.0400, L506.0200 #### [facility] [address] [place], [address] Hemoglobin (Bld) [Mass/Vol] 14.2 g/dL Normal 13.0-16.5 [facility] Comment on above: Performed By: #### L 503.0106, L100.0100, L501.9187, L500.4050, L3300.8000, L506.1001, L506.0400, L506.0200 #### [facility] [address] [place], [address] IG% 0.200 Normal 0.0-0.9 [facility] Comment on above: Result Comment: IG% - Immature Granulocytes (promyelocytes, myelocytes and metamyelocytes) > 1% indicates that a LEFT SHIFT is Present. Performed By: #### L 503.0106, L100.0100, L501.9187, L500.4050, L3300.8000, L506.1001, L506.0400, L506.0200 #### [facility] [address] [place], [address] Lymphocytes/100 WBC (Bld) 23.2 % Normal 19-41 [facility] Comment on above: Performed By: #### L 503.0106, L100.0100, L501.9187, L500.4050, L3300.8000, L506.1001, L506.0400, L506.0200 #### [facility] [address] [place], [address] MCH (RBC) [Entitic mass] 35.7 pg High 27.0-32.0 [facility] Comment on above: Performed By: #### L 503.0106, L100.0100, L501.9187, L500.4050, L3300.8000, L506.1001, L506.0400, L506.0200 #### [facility] [address] [place], [address] MCHC (RBC) [Mass/Vol] 35.1 g/dL Normal 32-36 [facility] Comment on above: Performed By: #### L 503.0106, L100.0100, L501.9187, L500.4050, L3300.8000, L506.1001, L506.0400, L506.0200 #### [facility] [address] [place], [address] MCV (RBC) [Entitic vol] 101.5 fL High 80-94 [facility] Comment on above: Performed By: #### L 503.0106, L100.0100, L501.9187, L500.4050, L3300.8000, L506.1001, L506.0400, L506.0200 #### [facility] [address] [place], [address] Monocytes/100 WBC (Bld) 10.4 % High 0-10 [facility] Comment on above: Performed By: #### L 503.0106, L100.0100, L501.9187, L500.4050, L3300.8000, L506.1001, L506.0400, L506.0200 #### [facility] [address] [place], [address] Neutrophils/100 WBC (Bld) 61.4 % Normal 47-70 [facility] Comment on above: Performed By: #### L 503.0106, L100.0100, L501.9187, L500.4050, L3300.8000, L506.1001, L506.0400, L506.0200 #### [facility] [address] [place], [address] Nucleated RBC (Bld) [#/Vol] 0 10*3/uL Normal 0-5 [facility] Comment on above: Performed By: #### L 503.0106, L100.0100, L501.9187, L500.4050, L3300.8000, L506.1001, L506.0400, L506.0200 #### [facility] [address] [place], [address] Platelet mean volume (Bld) [Entitic vol] 9.7 fL Normal 6.2-12.0 [facility] Comment on above: Performed By: #### L 503.0106, L100.0100, L501.9187, L500.4050, L3300.8000, L506.1001, L506.0400, L506.0200 #### [facility] [address] [place], [address] Platelets (Bld) [#/Vol] 267 10*3/uL Normal 150-450 [facility] Comment on above: Performed By: #### L 503.0106, L100.0100, L501.9187, L500.4050, L3300.8000, L506.1001, L506.0400, L506.0200 #### [facility] [address] [place], [address] RBC (Bld) [#/Vol] 3.98 10*6/uL Low 4.6-6.2 [facility] Comment on above: Performed By: #### L 503.0106, L100.0100, L501.9187, L500.4050, L3300.8000, L506.1001, L506.0400, L506.0200 #### [facility] [address] [place], [address] RDW SD 48.6 fl High 35.1-43.9 [facility] Comment on above: Performed By: #### L 503.0106, L100.0100, L501.9187, L500.4050, L3300.8000, L506.1001, L506.0400, L506.0200 #### [facility] [address] [place], [address] WBC (Bld) [#/Vol] 4.4 10*3/uL Normal 4.4-11.0 [facility] Comment on above: Performed By: #### L 503.0106, L100.0100, L501.9187, L500.4050, L3300.8000, L506.1001, L506.0400, L506.0200 #### [facility] [address] [place], [address] [facility] 03-04-2025 Albumin [Mass/Vol] 4.2 g/dL Normal 3.4-4.8 [facility] Comment on above: Performed By: #### L 503.0106, L100.0100, L501.9187, L500.4050, L3300.8000, L506.1001, L506.0400, L506.0200 #### [facility] [address] [place], [address] Albumin/Globulin [Mass ratio] 1.6 {ratio} Normal 0.9-2.4 [facility] Comment on above: Performed By: #### L 503.0106, L100.0100, L501.9187, L500.4050, L3300.8000, L506.1001, L506.0400, L506.0200 #### [facility] [address] [place], [address] ALK PHOS 73 U/L Normal 40-129 [facility] Comment on above: Performed By: #### L 503.0106, L100.0100, L501.9187, L500.4050, L3300.8000, L506.1001, L506.0400, L506.0200 #### [facility] [address] [place], [place], [id number] (344) ALT [Catalytic activity/Vol] 35 U/L Normal <=46 [facility] Comment on above: Performed By: #### L 503.0106, L100.0100, L501.9187, L500.4050, L3300.8000, L506.1001, L506.0400, L506.0200 #### [facility] [address] [place], [place], [id number] AST [Catalytic activity/Vol] 44 U/L High <=37 [facility] Comment on above: Performed By: #### L 503.0106, L100.0100, L501.9187, L500.4050, L3300.8000, L506.1001, L506.0400, L506.0200 #### [facility] [address] [place], [place], [address] Bilirubin [Mass/Vol] 0.53 mg/dL Normal 0.00-1.30 [facility] Comment on above: Performed By: #### L 503.0106, L100.0100, L501.9187, L500.4050, L3300.8000, L506.1001, L506.0400, L506.0200 #### [facility] [address] [place], [address] BUN/CRE 14.6 RATIO Normal 10-20 [facility] Comment on above: Performed By: #### L 503.0106, L100.0100, L501.9187, L500.4050, L3300.8000, L506.1001, L506.0400, L506.0200 #### [facility] [address] [place], [address] Calcium [Mass/Vol] 8.9 mg/dL Normal 7.6-11.0 [facility] Comment on above: Performed By: #### L 503.0106, L100.0100, L501.9187, L500.4050, L3300.8000, L506.1001, L506.0400, L506.0200 #### [facility] [address] [place], [address] Chloride [Moles/Vol] 106 mmol/L Normal 98-108 [facility] Comment on above: Performed By: #### L 503.0106, L100.0100, L501.9187, L500.4050, L3300.8000, L506.1001, L506.0400, L506.0200 #### [facility] [address] [place], [address] CO2 [Moles/Vol] 24.0 mmol/L Normal 21.0-32.0 [facility] Comment on above: Performed By: #### L 503.0106, L100.0100, L501.9187, L500.4050, L3300.8000, L506.1001, L506.0400, L506.0200 #### [facility] [address] [place], [address] Creatinine [Mass/Vol] 0.94 mg/dL Normal 0.70-1.20 [facility] Comment on above: Performed By: #### L 503.0106, L100.0100, L501.9187, L500.4050, L3300.8000, L506.1001, L506.0400, L506.0200 #### [facility] [address] [place], [place], [phone] (075) GAP 10 Normal 5-15 [facility] Comment on above: Performed By: #### L 503.0106, L100.0100, L501.9187, L500.4050, L3300.8000, L506.1001, L506.0400, L506.0200 #### [facility] [address] [place], [address] GFR/1.73 sq M.predicted among non-blacks MDRD (S/P/Bld) [Vol rate/Area] 93 mL/min/{1.73_m2} Normal >60 [facility] Comment on above: Result Comment: mL/m in/1.73m2 CKD-EPI Creatinine Equation (2020) Performed By: #### L 503.0106, L100.0100, L501.9187, L500.4050, L3300.8000, L506.1001, L506.0400, L506.0200 #### [facility] [address] [place], [place], [id number] (483) Globulin (S) [Mass/Vol] 2.6 g/dL Normal 2.2-4.2 [facility] Comment on above: Performed By: #### L 503.0106, L100.0100, L501.9187, L500.4050, L3300.8000, L506.1001, L506.0400, L506.0200 #### [facility] [address] [place], [place], [phone] Glucose [Mass/Vol] 107 mg/dL High 70-99 [facility] Comment on above: Performed By: #### L 503.0106, L100.0100, L501.9187, L500.4050, L3300.8000, L506.1001, L506.0400, L506.0200 #### [facility] [address] [place], [address] Potassium [Moles/Vol] 3.9 mmol/L Normal 3.3-5.1 [facility] Comment on above: Performed By: #### L 503.0106, L100.0100, L501.9187, L500.4050, L3300.8000, L506.1001, L506.0400, L506.0200 #### [facility] [address] [place], [address] Sodium [Moles/Vol] 140 mmol/L Normal 133-145 [facility] Comment on above: Performed By: #### L 503.0106, L100.0100, L501.9187, L500.4050, L3300.8000, L506.1001, L506.0400, L506.0200 #### [facility] [address] [place], [address] T PROT 6.8 g/dL Normal 5.9-8.4 [facility] Comment on above: Performed By: #### L 503.0106, L100.0100, L501.9187, L500.4050, L3300.8000, L506.1001, L506.0400, L506.0200 #### [facility] [address] [place], [address] Urea nitrogen [Mass/Vol] 14 mg/dL Normal 4-19 [facility] Comment on above: Performed By: #### L 503.0106, L100.0100, L501.9187, L500.4050, L3300.8000, L506.1001, L506.0400, L506.0200 #### [facility] [address] [place], [address] Folates,Serum (Folic Acid)on 03-04-2025 FOLATES,SERUM 21.10 ng/mL Normal 4.60-34.80 [facility] Comment on above: Order Comment: N Result Comment: Hemo lysis, Results will be affected, Requires Recollection. Performed By: #### L 501.9520, L500.4100 #### [facility] [address] [place], [address] Internal Medicine Office Vis iton 03-04-2025 Internal Medicine Office Visit [facility] Internal Medicine [address] [place] [address] [place] [address] OFFICE VISIT Date of Service: 03/04/25 MR#: [id number] Acct: [id number] Name: RAHAT VELARDE Rep #: [id number] : 1965 Provider: Dr. 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 NHUNG-7 BMS NHUNG-7 Feeling nervous, anxious, or [...] and colleagues, with an educational cj from [employer]. HPI HPI Chief Complaint: yearly Details: RAHAT [...] for 8-9 (more content not included)... Normal [facility] L501.9187on 03-04-2025 T3 Total 0.86 ng/mL Normal 0.80-2.00 [facility] Comment on above: Performed By: #### L 503.0106, L100.0100, L501.9187, L500.4050, L3300.8000, L506.1001, L506.0400, L506.0200 #### [facility] [address] [place], [place], [address] T4 Free Directon 03-04-2025 T4 FREE DIRECT 0.40 ng/dL Low 0.76-1.46 [facility] Comment on above: Performed By: #### L 503.0106, L100.0100, L501.9187, L500.4050, L3300.8000, L506.1001, L506.0400, L506.0200 #### [facility] [address] [place], [address] Vitamin B12on 03-04-2025 Cobalamin (Vitamin B12) [Mass/Vol] 633 pg/mL Normal 180-914 [facility] Comment on above: Performed By: #### L 503.0106, L100.0100, L501.9187, L500.4050, L3300.8000, L506.1001, L506.0400, L506.0200 #### [facility] [address] [place], [address] Vitamin D,25 Hydroxyon 03-04 Vitamin D 25-OH 18.2 ng/mL Low 30-100 [facility] Comment on above: Result Comment: Emily min D Status Deficiency: <20 ng/mL (50nmol/L) Insufficiency: 20-30 ng/mL (50-75 nmol/L) Sufficiency: 30-100 ng/mL (75-250 nmol/L) Toxicity: >100 ng/mL (>250 nmol/L) Performed By: #### L 503.0106, L100.0100, L501.9187, L500.4050, L3300.8000, L506.1001, L506.0400, L506.0200 #### [facility] [address] [place], [address] Lipid Profileon 02-28-2025 CHOL:HDL 3.89 Normal [facility] Comment on above: Performed By: #### L 501.9520, L500.4100 #### [facility] [address] [place], [address] Cholesterol [Mass/Vol] 291 mg/dL High <=200 [facility] Comment on above: Result Comment: Chol esterol level, Desirable <200 mg/dL Borderline high cholesterol 200-239 mg/dL High cholesterol >=240 mg/dL Recommendations of the NCEP Adult Treatment Panel for the following risk-cutoff thresholds for the [place] population. Performed By: #### L 501.9520, L500.4100 #### [facility] [address] [place], [address] Cholesterol in HDL [Mass/Vol] 75 mg/dL Normal [facility] Comment on above: Result Comment: Jazmin onal Cholesterol Education Program (NCEP) guidelines: <40 mg/dL: Low HDL-cholesterol (major risk factor for CHD) >= 60 mg/dL: High HDL-cholesterol (negative risk factor for CHD) HDL-cholesterol is affected by a number of factors, e.g. smoking, exercise, hormones, sex and age. Performed By: #### L 501.9520, L500.4100 #### [facility] [address] [place], [address] Cholesterol in LDL [Mass/Vol] 152 mg/dL Normal [facility] Comment on above: Result Comment: Bord gbyxay=281-106 mg/dL Higher Mvtm=298 mg/dL or greater Peoples Equation 2020 for LDL-C Performed By: #### L 501.9520, L500.4100 #### [facility] [address] [place], [address] Cholesterol in VLDL [Mass/Vol] 70 mg/dL High 5-40 [facility] Comment on above: Performed By: #### L 501.9520, L500.4100 #### [facility] [address] [place], [address] Triglyceride [Mass/Vol] 348 mg/dL High [facility] Comment on above: Result Comment: The drugs N-Acetylcysteine and Metamizole may falsely depress this assay. Normal range: <150 mg/dL Borderline High: 150-199 mg/dL High: 200-499 mg/dL Very High: >500 mg/dL Performed By: #### L 501.9520, L500.4100 #### [facility] [address] [place], [address] Thyroid Stim Hormone (TSH)on 02-28-2025 TSH 82.100 uIU/mL High 0.300-4.200 [facility] Comment on above: Performed By: #### L 501.9520, L500.4100 #### [facility] [place], [address] Encounters Encounter Date Encounter Type Care Provider Facility Start: 04-09-2025 ambulatory Fern Mequon Facility :[facility] Start: 03-18-2025 ambulatory Fern Mequon Facility :[facility] Start: 03-18-2025 End: 03-18-2025 ambulatory Fern Mequon Facility:[facility] Start: 03-13-2025 End: 03-13-2025 Emergency department patient visit Facility:[facility] Start: 03-04-2025 End: 03-04-2025 ambulatory Fern Susan Facility:[facility] Start: 03-04-2025 End: 03-04-2025 ambulatory Fern Susan Facility:[facility] Start: 02-28-2025 End: 02-28-2025 ambulatory Fern Mequon Facility:[facility] Payers Date Payer Category Payer Self-pay 2025 Unknown [id number] Unknown [id number] .. [id number] Unknown [id number] . [id number] Unknown [id number] .. [id number] Unknown [id number] .. [id number] Unknown [id number] ..8 [id number] Unknown [id number] 2..8 [id number] Summary Purpose Family History No Family History Records FoundNo Family History Records Found Advance Directives No Advanced Directives Records FoundNo Advanced Directives Records Found Additional Source Comments (unrecognized sect ion and content) No Status Records FoundNo Status Records Found INFORMATION SOURCE (unrecogn ized section and content) DATE CREATED AUTHOR 03/17/2025 [facility] DATE CREATED AUTHOR AUTHOR'S LISA HATFIELD 03/21/2025 [facility] FOR RECORDS PERTAINING TO PATIENTS WHO [...] BE BASED ON THE PRIMARY CLINICAL RECORDS. [employer] [facility]. provides no warranty or guarantee of the accuracy or completeness of information in this document.
== END | disposition home or self-care (01) ==
LOC: MTLAB 12:38
PROVIDERS: PCP Internal Medicine; Referring Provider Internal Medicine; Visit Provider Internal Medicine
DX: E03.9 Hypothyroidism, unspecified (principal)
CPT/HCPCS: 36415; 84443